=== PATIENT | female | born 1980 ===

== ENCOUNTER 2018-03-16 19:54 | Emergency (ER) | payer MEDICAID, OTHER ==
[2018-03-16 20:07] VITALS: BP 134/96; PULSE 70; RESP 18; TEMP 97.9; BMI 28.3
--- NOTE | 2018-03-16 20:16 | ED PDOC ---
Addendum entered and electronically signed by Donnie Jacobson PA-C 03/18/18 10:12: Addendum Addendum: 03/18/18 10:12 Official xray impression by Dr. Barth: no fracture/dislocation/effusion. Original Note: Arrival/HPI - General Chief Complaint: Trauma Time Seen by Provider: 03/16/18 20:10 Historian: Patient - History of Present Illness Narrative History of Present Illness (Text): 03/16/18 20:13 38 y/o female, no significant pmh, nkda, c/o lt. wrist pain s/p twisted about 1 hour ago. Aching pain, aggravated by the movement, no hand/finger/wrist/ forearm/elbow pain, no numbness or tingling, no rash, no palpitation, no shoulder pain or discomfort, no other medical or psychological complaints. Past Medical History - Provider Review Nursing Documentation Reviewed: Yes - Infectious Disease Hx of Infectious Diseases: None - Cardiac Hx Cardiac Disorders: No Hx Hypertension: No - Psychiatric Hx Depression: No Hx Substance Use: No - Anesthesia Hx Anesthesia: No Family/Social History - Physician Review Nursing Documentation Reviewed: Yes Family/Social History: Unknown Family HX Smoking Status: Never Smoked Hx Alcohol Use: No Hx Substance Use: No Allergies/Home Meds Allergies/Adverse Reactions: Allergies No Known Allergies Allergy (Verified 10/27/17 18:51) Home Medications: Home Meds Medication Instructions Recorded Confirmed Vit No.126/Iron/Folic 1 tab PO DAILY MDD 1 tab 10/27/17 10/27/17 [Prenavite] Review of Systems - Review of Systems Constitutional: absent: Fatigue, Fevers Eyes: absent: Vision Changes ENT: absent: Hearing Changes Respiratory: absent: SOB, Cough Cardiovascular: absent: Chest Pain Gastrointestinal: absent: Abdominal Pain, Diarrhea, Nausea, Vomiting Musculoskeletal: Arthralgias. absent: Back Pain, Neck Pain, Joint Swelling, Myalgias Skin: absent: Rash, Pruritis, Skin Lesions Neurological: absent: Headache, Dizziness Psychiatric: absent: Anxiety, Depression Physical Exam Vital Signs Reviewed: Yes Vital Signs Temp Pulse Resp BP Pulse Ox 03/16/18 20:06 97.9 F 70 18 134/96 H 100 Temperature: Afebrile Blood Pressure: Hypertensive Pulse: Regular Respiratory Rate: Normal Appearance: Positive for: Well-Appearing, Non-Toxic, Comfortable Pain Distress: Mild Mental Status: Positive for: Alert and Oriented X 3 - Systems Exam Head: Present: Atraumatic, Normocephalic Pupils: Present: PERRL Extroacular Muscles: Present: EOMI Conjunctiva: Present: Normal Mouth: Present: Moist Mucous Membranes Neck: Present: Normal Range of Motion Respiratory/Chest: Present: Clear to Auscultation, Good Air Exchange. No: Respiratory Distress, Accessory Muscle Use Cardiovascular: Present: Regular Rate and Rhythm, Normal S1, S2. No: Murmurs Abdomen: No: Tenderness, Distention, Peritoneal Signs Back: Present: Normal Inspection Upper Extremity: Present: Normal Inspection, Other (Lt. UE: +ttp on the dorsum wrist region with mild swelling, no scaphoid tenderness, no finger/hand/forearm/elbow/humerus/shoulder injury, FROM without limitation, sensation intact, motor 5/5, +Radial pulse, capillary refill< 2 seconds, neurovascular intact, motor 5/5. ). No: Cyanosis, Edema Lower Extremity: Present: Normal Inspection. No: Edema Neurological: Present: GCS=15, CN II-XII Intact, Speech Normal Skin: Present: Warm, Dry, Normal Color. No: Rashes Psychiatric: Present: Alert, Oriented x 3, Normal Insight, Normal Concentration Medical Decision Making ED Course and Treatment: 03/16/18 20:16 -Lt. wrist xray -Urine hcg -Tylenol -Observe and reassess 03/16/18 22:11 -Urine hcg is negative -Lt. wrist xray show no fracture or dislocation -Pt. feels much better, wrist splint applied with neurovascular intact. -Discharge home with motrin, wrist splint, sling, ice compression, follow up with your own pmd and orthopedic within 2 days, return to the ER for any new or worsening signs or symptoms. - RAD Interpretation Radiology Orders: 03/16/18 20:11 WRIST, LEFT 3 VIEWS [RAD] Stat - PA / ANIMAL PHYSIOLOGIST / Resident Statement MD/DO has reviewed & agrees with the documentation as recorded. Disposition/Present on Arrival - Present on Arrival Any Indicators Present on Arrival: No History of DVT/PE: No History of Uncontrolled Diabetes: No Urinary Catheter: No History of Decub. Ulcer: No History Surgical Site Infection Following: None - Disposition Have Diagnosis and Disposition been Completed?: Yes Diagnosis: Wrist injury Disposition: HOME/ ROUTINE Disposition Time: 22:12 Patient Plan: Discharge Condition: IMPROVED Additional Instructions: -Discharge home with motrin, wrist splint, sling, ice compression, follow up with your own pmd and orthopedic within 2 days, return to the ER for any new or worsening signs or symptoms. Prescriptions: Ibuprofen [Motrin] 600 mg PO QID PRN #30 tab PRN Reason: Other Referrals: Rickey Cummings MD [Staff Provider] - Follow up with primary Forms: [employer] ([place]), WORK NOTE
[2018-03-16 22:52] VITALS: O2SAT 99
--- NOTE | 2018-03-17 11:07 | RAD ---
PROCEDURE: Left Wrist Radiographs. HISTORY: lt. wrist twist injury, COMPARISON: None available. FINDINGS: BONES: No acute displaced fracture. JOINTS: No dislocation. SOFT TISSUES: Unremarkable. No evidence of radiopaque foreign body OTHER FINDINGS: None. IMPRESSION: No acute displaced fracture, dislocation, or significant joint effusion identified. If symptoms persist, or if there is continued clinical concern, x-ray follow-up in 7-10 days should be considered.
== END 2018-03-16 22:52 | disposition home or self-care (01) ==
LOC: ED 19:54
DX: S69.92XA Unspecified injury of left wrist, hand and finger(s), initial encounter (principal); X50.1XXA Overexertion from prolonged static or awkward postures, initial encounter; Y92.89 Other specified places as the place of occurrence of the external cause; Y99.0 Civilian activity done for income or pay